=== PATIENT | male | born 1985 | race American Indian/Alaskan Native ===

== ENCOUNTER 2018-03-22 07:10 | Observation (INO) | payer OTHER ==
[2018-03-22 07:15] VITALS: BMI 23.7
--- NOTE | 2018-03-22 07:59 | ED PDOC ---
Lower Extremity Pain/Injury Time Seen by Provider: 03/22/18 07:34 Chief Complaint (Nursing): Lower Extremity Problem/Injury Chief Complaint (Provider): Lower Extremity Problem/Injury History Per: Patient History/Exam Limitations: no limitations Onset/Duration Of Symptoms: Days (5) Additional Complaint(s): 32 years old male presents to the ED for evaluation of left ankle injury onset 5 days ago. Patient reports he was playing basketball, he jumped and fell with popping his ankle. He states pain is in the back of the ankle and reports difficulty moving his foot and walking. Patient reports he has been seen by Dr. Lopez and diagnosed with achilles tendon rupture. He denies any other complaints. PMD: José Miguel Lopez Past Medical History Reviewed: Historical Data, Nursing Documentation, Vital Signs Vital Signs: Last Vital Signs Temp 98 F 03/22/18 07:14 Pulse 60 03/22/18 07:14 Resp 24 03/22/18 07:14 BP 139/91 H 03/22/18 07:14 Pulse Ox 100 03/22/18 07:14 - Medical History PMH: No Chronic Diseases - Surgical History Other surgeries: Right achilles tendon repair - Family History Family History: States: Unknown Family Hx - Social History Current smoker - smoking cessation education provided: No Alcohol: None Drugs: Denies - Home Medications Home Medications: Ambulatory Orders Medication Instructions Recorded No Known Home Med 03/22/18 - Allergies Allergies/Adverse Reactions: Allergies Allergy/AdvReac Type Severity Reaction Status Date / Time No Known Allergies Allergy Verified 03/22/18 07:45 Review of Systems ROS Statement: Except As Marked, All Systems Reviewed And Found Negative Musculoskeletal: Positive for: Foot Pain (Left ankle pain with difficulty moving the foot) Physical Exam - Reviewed Nursing Documentation Reviewed: Yes Vital Signs Reviewed: Yes - Physical Exam Appears: Positive for: Non-toxic, No Acute Distress Head Exam: Positive for: ATRAUMATIC, NORMOCEPHALIC Skin: Positive for: Normal Color, Warm, Dry Eye Exam: Positive for: Normal appearance, EOMI, PERRL Neck: Positive for: Normal, Supple Cardiovascular/Chest: Positive for: Regular Rate, Rhythm. Negative for: Murmur Respiratory: Positive for: Normal Breath Sounds. Negative for: Wheezing Gastrointestinal/Abdominal: Positive for: Normal Exam, Soft. Negative for: Tenderness Extremity: Positive for: Tenderness (Posterior to left ankle in achilles tendon area), Other (Salomon test was positive of left leg). Negative for: Deformity (of left ankle), Swelling (of left ankle) Neurologic/Psych: Positive for: Alert, Oriented (x3) - ECG O2 Sat by Pulse Oximetry: 100 (RA) Pulse Ox Interpretation: Normal Medical Decision Making Medical Decision Making: Time: 744 Initial Impression: Achilles tendon rupture Initial Plan: --BBK --EKG --BMP --CBC --PTT --PT Spoke to Dr. Lopez, who recommends urgent care to achilles tendon rupture. ----- Scribe Attestation: Documented by Huma Boyce, acting as a scribe for Rolo Ramos MD. Provider Scribe Attestation: All medical record entries made by the Scribe were at my direction and personally dictated by me. I have reviewed the chart and agree that the record accurately reflects my personal performance of the history, physical exam, medical decision making, and the department course for this patient. I have also personally directed, reviewed, and agree with the discharge instructions and disposition. Disposition - Disposition Forms: [facility] (Faroese)
[2018-03-22 08:30] LABS: BASO # 0.1 K/uL (0.0-0.2); BASO % 1.9 % (0.0-2.0); EOS # 0.3 K/uL (0.0-0.7); EOS % 4.6 % (0.0-4.0); HEMOGLOBIN 15.1 g/dL (12.0-18.0); LYMPH # 1.6 K/uL (1.0-4.3); LYMPH % 22.5 % (20.0-40.0); MEAN CELL VOLUME 83.4 fl (80.0-94.0); MEAN CORPUSCULAR HEMOGLOBIN 27.8 pg (27.0-31.0); MEAN CORPUSCULAR HGB CONC 33.3 g/dL (33.0-37.0); MONO # 0.4 K/uL (0.0-0.8); MONO % 5.8 % (0.0-10.0); NEUT # 4.6 K/uL (1.8-7.0); NEUT % 65.2 % (50.0-75.0); NRBC % 0.1 % (0.0-0.0); RBC 5.42 Mil/uL (4.40-5.90); RED CELL DISTRIBUTION WIDTH 13.3 % (11.5-14.5)
[2018-03-22 08:36] LABS: INR 0.9
[2018-03-22 08:39] LABS: PARTIAL THROMBOPLASTIN TIME 31.7 Seconds (25.6-37.1)
[2018-03-22 08:47] LABS: BLOOD UREA NITROGEN 14 mg/dl (9-20); CALCIUM 9.3 mg/dL (8.4-10.2); GFR NON-AFRICAN AMERICAN > 60
[2018-03-22 08:50] LABS: PROTHROMBIN TIME 9.9 Seconds (9.8-13.1)
--- NOTE | 2018-03-22 08:54 | CARD ---
APPROVED REPORT Date of service: 03/22/2018 <Conclusion> Normal sinus rhythm with sinus arrhythmia Normal ECG
[2018-03-22] MEDS ORDERED: ceFAZolin IV 1 gm in Dextrose 2 GM/100 ML BAG IVPB ONE (10:49)
[2018-03-22] MEDS ORDERED: Lactated Ringer's 1,000 ML IV ONE ×2 (10:55→12:47)
[2018-03-22] MEDS ORDERED: Rocuronium 10 mg/ml (5 ml) ONE (11:00)
[2018-03-22] MEDS ORDERED: Succinylcholine 200 mg/10 ml Inj IV ONE (11:00)
[2018-03-22] MEDS ORDERED: Propofol 10 mg/ml Inj (20 ML) ONE (11:00)
[2018-03-22] MEDS ORDERED: Bupivacaine HCl 0.5% PF (30 ml) Inj ONE (11:18)
[2018-03-22] MEDS ORDERED: Lidocaine 2% Inj (20ml) IJ ONE (11:31)
[2018-03-22] MEDS ORDERED: Dexamethasone 4 mg/1 ml ONE (11:48)
--- NOTE | 2018-03-22 12:31 | PCM.SURG1 ---
Surgeon's Initial Post Op Note - Surgeon's Notes Surgeon: Dr. Lopez [employer] Mechanic: Dr. Acevedo PGY-3, Dr. Dias PGY-3 Type of Anesthesia: General Mask, Local Anesthesia Administered By: Dr. Cortes Pre-Operative Diagnosis: left achilles tendon rupture Operative Findings: see dictation Post-Operative Diagnosis: same Operation Performed: left achilles tendon primary repair Specimen/Specimens Removed: soft tissue Estimated Blood Loss: EBL {In ML}: 5 Blood Products Given: N/A Drains Used: No Drains Post-Op Condition: Good Date of Surgery/Procedure: 03/22/18 Time of Surgery/Procedure: 12:30
[2018-03-22] MEDS ORDERED: Dexamethasone 4 mg/1 ml IVP PRN (12:55)
[2018-03-22] MEDS ORDERED: HYDROmorphone 0.5 mg/0.5 ml ISec IVP PRN (12:55)
[2018-03-22] MEDS ORDERED: DiphenhydrAMINE 50 mg/ml Inj IVP PRN (12:55)
--- NOTE | 2018-03-22 12:58 | PCM.ANESB2 ---
Popliteal Nerve Block - Popliteal Nerve Block Date of Procedure: 03/22/18 Anesthesiologist: Ho Cortes Pre-Procedure Diagnosis: Left achilles tendon tear Post-Procedure Diagnosis: Left achilles tendon tear Procedure Performed: Popliteal Nerve Block Left - Procedure Popliteal Nerve Block: This procedure was explained to the patient that it is for post-operative pain management. Consent was obtained after a thorough discussion with the patient regarding the benefits and possible complications of local anesthetic block of the sciatic nerve at the popliteal level. The patient was brought to the operating room and standard monitors are applied. Time-out was held with the circulating nurse to confirm the correct surgery and the appropriate block. After completion of the surgery under general anesthesia in the prone position, patient's operative leg was gently raised and supported and the groove in between the biceps femoris and vastus lateralis muscles was carefully palpated. The skin approximately 8cm above the popliteal crease was then marked. The ultrasound transducer was then applied to the posterior thigh approximately 8cm above the popliteal crease in the transverse plane and the sciatic nerve before its division was visualized lateral to the popliteal artery and in between the bicep femoris and semimembranosus/semitendinosus muscles. After identification, the lateral portion of the thigh was prepped Chlorhexidine. At this point, a # 21 gauge Stimuplex insulated 4 inch needle was inserted into pre-marked area and advanced in a perpendicular direction. The needle was inserted above the ultrasound transducer in-plane towards the sciatic nerve in a [id number] direction. Needle advancement was performed carefully under direct ultrasound visualization. Nerve stimulator was used and dorsiflexion of the left foot was elicited at a current of 0.4 MA. After repeated negative aspiration, 30cc of 0.25 % bupivacaine with [id number] epinephrine was injected in 5cc aliquots. The needle was removed intact and sterile dressing was applied. The patient tolerated the popliteal nerve block well with stable vital signs and was subsequently prepared for the surgery.
[2018-03-22] MEDS ORDERED: Lactated Ringer's 1,000 ML IV SCH (13:00)
[2018-03-22] MEDS ORDERED: Acetaminophen 650mg/20.3ml solution UD PO STA (13:55)
[2018-03-22 14:19] VITALS: RESP 18
[2018-03-22 16:15] VITALS: O2SAT 97
[2018-03-22 16:57] VITALS: BP 124/67; PULSE 78; TEMP 98.6
--- NOTE | 2018-03-22 23:50 | OP ---
Copied To: José Miguel Lopez MD Attending MD: José Miguel Lopez MD PROCEDURE DATE: 03/22/2018 PREOPERATIVE DIAGNOSIS: Left Achilles tendon rupture. POSTOPERATIVE DIAGNOSIS: Left Achilles tendon rupture. PROCEDURE: Left Achilles tendon primary repair, 56[address]. SURGEON: José Miguel Lopez MD ESTIMATED BLOOD LOSS: Minimal. TYPE OF ANESTHESIA: General and postoperative popliteal block. SPECIMENS: None. COMPLICATIONS: None. DISPOSITION: Stable to recovery room. INDICATIONS: This is a 32-year-old male who presents to the [facility] for complaints of left ankle pain and swelling. He had playing basket ball. The patient was seen in the emergency room and diagnosed with acute Achilles tendon rupture. He was taken to the operating room for the above surgery. Risks and benefits of the procedure were explained. Risks included, but not limited to bleeding; infection; tendon, nerve, vessel injury; instability; chronic pain; potential need for additional surgery in the future. The patient understood the above risks and elected to proceed. Informed consent was obtained. DESCRIPTION OF PROCEDURE: The patient was brought to the operating room, underwent general anesthesia and was placed prone on the operating room table. The left lower extremity was then prepped and draped in a standard surgical fashion and a calf tourniquet was placed. A time-out was performed. Midline longitudinal incision over the Achilles tendon rupture was marked out. The left leg was then elevated, exsanguinated, and tourniquet was inflated to 250 mmHg. Incision was made through the skin only. All superficial veins were cauterized. Dissection was carried down to identifying the paratenon. The paratenon was incised longitudinally and the tear was evacuated. Hematoma was evacuated. There is full rupture with 3 cm retraction of Achilles tendon at the tendinous junction. The edges of the rupture were debrided to good healthy tendon. Then #2 Fiber wire was placed into the proximal tendon in a Krackow locking suture configuration with two free limbs, followed by another #2 Fiber wire suture in the distal tendon stump with two free limbs. The free limbs of each tendon stump was then brought together and sutured in tight configuration with no gapping at the repair site. The repair site was then reinforced with #0 Vicryl running locking suture. The patient's ankle plantar flexion was resolved. Anatomic configuration of the ankle was preserved. The wound was then copiously irrigated. Ankle was taken to full range of motion with no gapping at the repair site. The paratenon was then closed with 2-0 Vicryl sutures followed by 2-0 subcuticular layered closure, followed by kaushik with skin. Sterile dressing was applied with Xeroform, 4x4, fluffs, and short arm posterior plaster splint with ankle in 30 degrees of plantar flexion. The patient tolerated the procedure well, underwent postoperative popliteal block, anesthesia, and was returned to the recovery room in excellent condition. He will follow up with me in two weeks in the office for wound check and will continue with nonweightbearing protocol. José Miguel Lopez MD
== END 2018-03-22 17:40 | disposition home or self-care (01) ==
LOC: H.ER 07:10 → H.ERHOLD 07:45
DX: S86.012A Strain of left Achilles tendon, initial encounter (principal); Y93.67 Activity, basketball; W19.XXXA Unspecified fall, initial encounter
CPT/HCPCS: 27650; 80048; 85025; 85610; 85730; 86850; 86860; 86870; 86900; 93005; 97161; G0378; G8978; G8979; J0330; J0690; J1100; J2405; J2704; J2765; J3010; J7120